=== PATIENT | female | born 1980 | race African-American/Black ===

== ENCOUNTER → 2019-11-02 | Day surgery (SDC) | payer OTHER ==
[~2019-11-02] VITALS: Ht 173.9 cm; Wt 148.8 kg
--- NOTE | ~2019-11-02 | PROC NOTE ---
[place], [place] PROCEDURE NOTE NAME: SUZANNE HARRIS [facility]: [id number] UNIT #: [id number] ROOM: DOCTOR: TYREL DOMINGUEZ MD BIRTHDATE: [birth year] DOS: 11/02/2019 PREOPERATIVE DIAGNOSIS: Preoperative examination for proposed gastric bypass. POSTOPERATIVE DIAGNOSIS: Gastritis. PROCEDURE: EGD with antral mucosal biopsy x 2. SURGEON: Tyrel Dominguez MD ROAD EQUIPMENT OPERATOR: None. ANESTHESIA: MAC. INDICATIONS: This is a 39-year-old -[place] lady who is here for a preoperative examination for a proposed gastric bypass at another facility next month. The procedure and its complications were explained to the patient in detail preoperatively. Complications that were discussed included but were not limited to, bleeding, stomach perforation, missed lesions or prolonged pain. She agreed to proceed. DESCRIPTION OF PROCEDURE: After identifying the patient, the patient was brought to the endoscopy suite and placed in the left lateral position. After IV sedation was administered, a timeout procedure was called and a bite block was placed. An adult gastroscope was now passed through the mouth into the pharynx, esophagus, stomach and the first 2 parts of the duodenum. There was found to be some antral gastritis, for which 2 antral mucosal biopsies were taken. The duodenum and the rest of the stomach were visualized entirely and they were within normal limits. The esophagus was visualized as well and that was within normal limits also. The scope was then withdrawn and the patient was brought back to the recovery room in stable fashion. There were no complications. Dr. Tyrel Dominguez, the attending endoscopist, was present throughout the operating case. Tyrel Dominguez MD CM:PROCNOTE:PROCEDURE NOTE [id number] TYREL DOMINGUEZ MD
[2019-11-02 08:48] VITALS: BP 152/90
--- NOTE | 2019-11-02 09:45 | NUR ---
URINE TEST PERFORMED RESULTS NOTED PER DR PERSON NEGATIVE
[2019-11-02 10:35] VITALS: BP 116/63
[2019-11-02 10:50] VITALS: BP 129/98
[2019-11-02 11:05] VITALS: BP 135/96
== END | disposition home or self-care (01) ==
LOC: SDC 10-31 13:15
DX: K29.50 Unspecified chronic gastritis without bleeding (principal); K21.9 Gastro-esophageal reflux disease without esophagitis; E66.01 Morbid (severe) obesity due to excess calories; Z68.42 Body mass index [BMI] 45.0-49.9, adult; Z79.899 Other long term (current) drug therapy; Z98.890 Other specified postprocedural states; Z82.49 Family history of ischemic heart disease and other diseases of the circulatory system; Z83.3 Family history of diabetes mellitus; Z80.8 Family history of malignant neoplasm of other organs or systems

== ENCOUNTER → 2020-01-20 | Outpatient (CLI) | payer OTHER ==
[2020-01-20 09:51] LABS: CLARITY SL CLOUDY (CLEAR); COLOR STRAW (YELLOW)
[2020-01-20 09:52] LABS: BILIRUBIN 1+ (NEGATIVE); BLOOD TRACE-INTACT (NEGATIVE); GLUCOSE NEGATIVE (NEGATIVE); KETONE 3+ (NEGATIVE); LEUKO ESTERASE NEGATIVE (NEGATIVE); NITRITE NEGATIVE (NEGATIVE); PH 6.5 (5.0-9.0); SPECIFIC GRAVITY 1.025 (1.005-1.030)
[2020-01-20 10:05] LABS: ALBUMIN 3.4 gm/dl (3.1-4.5); ALKALINE PHOSPHATASE 73 U/L (45-117); BUN 7 mg/dl (7-24); CHLORIDE 110 mmol/L (98-107); CREATININE 0.87 mg/dL (0.55-1.02); POTASSIUM 3.5 mmol/L (3.5-5.1); SGOT/AST 21 IU/L (3-35); SGPT/ALT 36 U/L (12-78); SODIUM 142 mmol/L (136-145); TOTAL PROTEIN 7.7 gm/dL (6.4-8.2)
[2020-01-20 10:09] LABS: BACTERIA 2+; MUCOUS 2+
== END | disposition home or self-care (01) ==
LOC: LAB 09:19
PROVIDERS: Family Medicine
DX: E87.6 Hypokalemia (principal); R80.0 Isolated proteinuria

== ENCOUNTER → 2020-02-08 | Outpatient (CLI) | payer OTHER ==
[2020-02-15 13:09] LABS: ALBUMIN, URINE 73.8 % (.); ALPHA - 2 - GLOBULIN, URINE 4.6 % (.); ALPHA-1-GLOBULIN, URINE 5.1 % (.); BETA GLOBULIN, URINE 9.9 % (.); GAMMA GLOBULIN, URINE 6.6 % (.); M-SPIKE, % Not Observed % (Not Observed); PROTEIN,TOTAL - URINE RANDOM 191.3 mg/dL (Not Estab.)
[2020-02-15 13:15] LABS: URINE VOLUME 1425 mL
== END | disposition home or self-care (01) ==
LOC: LAB 09:24
PROVIDERS: Family Medicine
DX: R82.4 Acetonuria (principal); R80.9 Proteinuria, unspecified; R80.0 Isolated proteinuria